=== PATIENT | female | born 1945 | race Caucasian/White ===

== ENCOUNTER → 2020-10-04 | Day surgery (SDC) | payer MEDICARE ==
[~2020-10-04] MED LIST: ALENDRONATE SOD70 MG PO; ANASTROZOLE1 MG PO; ASPIRIN EC81 MG PO; CARAFATE1 GM PO; FLONASE 0.05% N16 GM; HYDROCHLOROTH12.5 M1 PO; LISINOPRIL20 MG PO; LOPRESSOR 25 MG25 MG PO; PRAVASTATIN SOD40 MG PO; PROTONIX40 MG PO; SERTRALINE HCL50 MG PO; TUMS DUAL ACTI1 EACH PO; VITAMIN D325 MC6 PO
== END | disposition home or self-care (01) ==
LOC: OR 09:22
DX: Z12.11 Encounter for screening for malignant neoplasm of colon (principal); K57.30 Diverticulosis of large intestine without perforation or abscess without bleeding; K66.0 Peritoneal adhesions (postprocedural) (postinfection); K64.0 First degree hemorrhoids; K22.2 Esophageal obstruction; K21.00 Gastro-esophageal reflux disease with esophagitis, without bleeding; I10 Essential (primary) hypertension; E78.00 Pure hypercholesterolemia, unspecified; Z87.891 Personal history of nicotine dependence; Z79.82 Long term (current) use of aspirin; Z88.0 Allergy status to penicillin; Z88.2 Allergy status to sulfonamides; Z79.899 Other long term (current) drug therapy
CPT/HCPCS: 43200; G0121; J2001; J2704; J7040

== ENCOUNTER → 2020-10-05 | Day surgery (SDC) | payer MEDICARE | END | disposition home or self-care (01) | LOC: OR 09:59 | DX: K22.2 Esophageal obstruction (principal); K44.9 Diaphragmatic hernia without obstruction or gangrene; K21.9 Gastro-esophageal reflux disease without esophagitis; I10 Essential (primary) hypertension; E78.5 Hyperlipidemia, unspecified; E66.3 Overweight; Z88.0 Allergy status to penicillin; Z82.49 Family history of ischemic heart disease and other diseases of the circulatory system; Z87.891 Personal history of nicotine dependence; Z79.82 Long term (current) use of aspirin; Z79.899 Other long term (current) drug therapy; Z68.26 Body mass index [BMI] 26.0-26.9, adult; Z88.2 Allergy status to sulfonamides | CPT/HCPCS: 76000; J2001; J2704; J7040 ==

== ENCOUNTER → 2020-10-19 | Day surgery (SDC) | payer MEDICARE ==
[~2020-10-19] VITALS: Ht 153.7 cm; Wt 65.3 kg
== END | disposition home or self-care (01) ==
LOC: OR 07:03
DX: K22.2 Esophageal obstruction (principal); K21.9 Gastro-esophageal reflux disease without esophagitis; K44.9 Diaphragmatic hernia without obstruction or gangrene; I10 Essential (primary) hypertension; E78.00 Pure hypercholesterolemia, unspecified; Z87.891 Personal history of nicotine dependence; Z91.040 Latex allergy status; Z88.0 Allergy status to penicillin; Z88.2 Allergy status to sulfonamides; Z88.1 Allergy status to other antibiotic agents; Z79.82 Long term (current) use of aspirin; Z79.899 Other long term (current) drug therapy
CPT/HCPCS: J2704; J3010; J7040

== ENCOUNTER → 2020-11-06 | Day surgery (SDC) | payer MEDICARE | END | disposition home or self-care (01) | LOC: OR 08:19 | DX: K21.00 Gastro-esophageal reflux disease with esophagitis, without bleeding (principal); K44.9 Diaphragmatic hernia without obstruction or gangrene; K25.9 Gastric ulcer, unspecified as acute or chronic, without hemorrhage or perforation; I10 Essential (primary) hypertension; E78.5 Hyperlipidemia, unspecified; Z87.891 Personal history of nicotine dependence; Z88.0 Allergy status to penicillin; Z79.899 Other long term (current) drug therapy | CPT/HCPCS: J2704; J7040 ==

== ENCOUNTER → 2020-12-14 | Day surgery (SDC) | payer MEDICARE | END | disposition home or self-care (01) | LOC: OR 10:54 | DX: K22.2 Esophageal obstruction (principal); K44.9 Diaphragmatic hernia without obstruction or gangrene; K21.9 Gastro-esophageal reflux disease without esophagitis; I10 Essential (primary) hypertension; E78.00 Pure hypercholesterolemia, unspecified; Z87.891 Personal history of nicotine dependence; Z88.0 Allergy status to penicillin; Z88.2 Allergy status to sulfonamides; Z91.040 Latex allergy status; Z79.82 Long term (current) use of aspirin; Z79.899 Other long term (current) drug therapy; Z20.822 Contact with and (suspected) exposure to COVID-19 | CPT/HCPCS: 76000; J2704; J3010; U0002 ==

== ENCOUNTER → 2022-03-17 | Outpatient (CLI) | payer MEDICARE | LOC: KOH-I 13:49 | DX: M25.572 Pain in left ankle and joints of left foot (principal); M19.072 Primary osteoarthritis, left ankle and foot | CPT/HCPCS: 73610 ==

== ENCOUNTER → 2022-05-13 | Outpatient (CLI) | payer MEDICARE | LOC: CT 13:31 | DX: R31.9 Hematuria, unspecified (principal); N20.0 Calculus of kidney; K80.20 Calculus of gallbladder without cholecystitis without obstruction; K76.0 Fatty (change of) liver, not elsewhere classified; K44.9 Diaphragmatic hernia without obstruction or gangrene | CPT/HCPCS: 36415; 81001; 82565; 84520; 87086; Q9967 ==